=== PATIENT | male | born 1940 | race Two or more races ===

== ENCOUNTER 2017-05-08 08:47 | Outpatient (CLI) | payer OTHER ==
[~2017-05-08 08:47] MED LIST: AMOX1TAB12 PO; ASPIR-TRIN325 MG; FLONASE16 G1 NS; METFORMIN HCL500 MG; NEURIN; SYNTHROID75 MCG
== END 2017-05-08 09:33 | disposition home or self-care (01) ==
LOC: SONOGRAMA 08:47
DX: M19.072 Primary osteoarthritis, left ankle and foot (principal); M10.9 Gout, unspecified

== ENCOUNTER 2017-11-04 09:34 | Outpatient (CLI) | payer OTHER ==
[~2017-11-04] VITALS: Ht 152.4 cm; Wt 79.4 kg
[2017-11-04] MEDS ORDERED: DESLORATADINE5 MG PO (10:46)
[2017-11-04] MEDS ORDERED: FLONASE16 GM NASAL (10:46)
== END 2017-11-04 09:55 | disposition home or self-care (01) ==
LOC: OFIC 805 09:34
DX: J31.0 Chronic rhinitis (principal); H93.13 Tinnitus, bilateral; H90.3 Sensorineural hearing loss, bilateral

== ENCOUNTER 2017-11-24 07:25 | Outpatient (CLI) | payer OTHER ==
[~2017-11-24 07:25] MED LIST changes: +DESLORATADINE5 MG PO; +FLONASE16 GM NASAL
== END 2017-11-24 08:00 | disposition home or self-care (01) ==
LOC: NUCLEAR 07:25
DX: I20.8 Other forms of angina pectoris (principal)
CPT/HCPCS: 78452; 93017; A9500

== ENCOUNTER 2018-02-17 08:44 | Outpatient (CLI) | payer OTHER | END 2018-02-17 08:51 | disposition home or self-care (01) | LOC: TOM 08:44 | DX: R91.1 Solitary pulmonary nodule (principal) ==

== ENCOUNTER → 2018-05-05 | Outpatient (CLI) | payer OTHER | END | disposition home or self-care (01) | LOC: RAD 501 09:07 | DX: I11.9 Hypertensive heart disease without heart failure (principal); R06.02 Shortness of breath ==

== ENCOUNTER 2018-11-12 09:36 | Outpatient (CLI) | payer OTHER | END 2018-11-12 10:16 | disposition home or self-care (01) | LOC: SONOGRAMA 09:36 | DX: R80.8 Other proteinuria (principal); N19 Unspecified kidney failure ==

== ENCOUNTER 2019-02-09 07:37 | Outpatient (CLI) | payer OTHER ==
[~2019-02-09] VITALS: Ht 152.4 cm; Wt 77.1 kg
[2019-02-09] MEDS ORDERED: MEDROL4 MG PO (10:49)
[2019-02-09] MEDS ORDERED: DESLORATADINE5 MG PO (10:49)
[2019-02-09] MEDS ORDERED: FLONASE16 GM NASAL (10:49)
== END 2019-02-09 08:15 | disposition home or self-care (01) ==
LOC: OFIC 805 07:37
DX: J32.8 Other chronic sinusitis (principal); R49.0 Dysphonia; H93.13 Tinnitus, bilateral; R05 Cough; J31.0 Chronic rhinitis; H90.3 Sensorineural hearing loss, bilateral; J45.998 Other asthma

== ENCOUNTER → 2019-02-16 | Outpatient (CLI) | payer OTHER ==
[~2019-02-16] MED LIST changes: +MEDROL4 MG PO
== END | disposition home or self-care (01) ==
LOC: TOM 10:19
DX: J30.1 Allergic rhinitis due to pollen (principal); R91.1 Solitary pulmonary nodule

== ENCOUNTER 2019-11-22 12:42 | Outpatient (CLI) | payer OTHER ==
[2019-11-22] MEDS ORDERED: NEILMED SINUS1 EAC1 NASAL (12:54)
[2019-11-22] MEDS ORDERED: SINGULAIR10 MG PO (12:54)
[2019-11-22] MEDS ORDERED: DYMISTA NASAL S23 GM NASAL (12:54)
== END 2019-11-22 18:25 | disposition home or self-care (01) ==
LOC: OFIC 805 12:42
PROVIDERS: ATTEND Otolaryngology
DX: J30.89 Other allergic rhinitis (principal); J32.8 Other chronic sinusitis

== ENCOUNTER 2020-02-09 09:17 | Outpatient (CLI) | payer OTHER ==
[~2020-02-09 09:17] MED LIST changes: +DYMISTA NASAL S23 GM NASAL; +NEILMED SINUS1 EAC1 NASAL; +SINGULAIR10 MG PO
== END 2020-02-09 09:19 | disposition home or self-care (01) ==
LOC: TOM 09:17
PROVIDERS: ATTEND Internal Medicine Pulmonary Disease
DX: R91.1 Solitary pulmonary nodule (principal); J30.1 Allergic rhinitis due to pollen

== ENCOUNTER 2020-02-11 08:12 | Outpatient (CLI) | payer OTHER | END 2020-02-11 13:46 | disposition home or self-care (01) | LOC: OFIC 805 08:12 | PROVIDERS: ATTEND Otolaryngology | DX: R42 Dizziness and giddiness (principal); H61.23 Impacted cerumen, bilateral; J30.9 Allergic rhinitis, unspecified ==

== ENCOUNTER 2020-04-30 08:23 | Outpatient (CLI) | payer OTHER | END 2020-04-30 16:40 | disposition home or self-care (01) | LOC: SONOGRAMA 08:23 | PROVIDERS: ATTEND Specialist/Technologist, Other Nephrology | DX: N17.8 Other acute kidney failure (principal); N13.8 Other obstructive and reflux uropathy ==

== ENCOUNTER → 2021-06-19 08:11 | Outpatient (CLI) | payer OTHER | END | disposition home or self-care (01) | LOC: LAB 08:11 | PROVIDERS: ATTEND Radiology Diagnostic Radiology | DX: N20.0 Calculus of kidney (principal) ==

== ENCOUNTER 2021-06-20 07:16 | Outpatient (CLI) | payer OTHER | END 2021-06-20 07:25 | disposition home or self-care (01) | LOC: TOM 07:16 | PROVIDERS: ATTEND Internal Medicine Gastroenterology | DX: K59.00 Constipation, unspecified (principal); E03.9 Hypothyroidism, unspecified; R14.0 Abdominal distension (gaseous) ==

== ENCOUNTER 2021-09-09 09:30 | Outpatient (CLI) | payer OTHER | END 2021-09-09 09:40 | disposition home or self-care (01) | LOC: PPH VACUNA 09:30 | PROVIDERS: ATTEND Emergency Medicine Pediatric Emergency Medicine | DX: Z23 Encounter for immunization (principal) ==

== ENCOUNTER 2022-02-13 09:19 | Outpatient (CLI) | payer OTHER | END 2022-02-13 09:29 | disposition home or self-care (01) | LOC: PPH VACUNA 09:19 | PROVIDERS: ATTEND Emergency Medicine Pediatric Emergency Medicine | DX: Z23 Encounter for immunization (principal) ==

== ENCOUNTER 2022-02-13 09:20 | Outpatient (CLI) | payer OTHER | END 2022-02-13 09:30 | disposition home or self-care (01) | LOC: PPH VACUNA 09:20 | PROVIDERS: ATTEND Emergency Medicine Pediatric Emergency Medicine | DX: Z23 Encounter for immunization (principal) ==

== ENCOUNTER 2022-06-25 07:51 | Outpatient (CLI) | payer OTHER | END 2022-06-25 07:56 | disposition home or self-care (01) | LOC: SONOGRAMA 07:51 | PROVIDERS: ATTEND Internal Medicine Gastroenterology | DX: R10.9 Unspecified abdominal pain (principal) ==

== ENCOUNTER 2023-02-12 07:30 | Outpatient (CLI) | payer OTHER | END 2023-02-12 07:34 | disposition home or self-care (01) | LOC: SONOGRAMA 07:30 | PROVIDERS: ATTEND Specialist/Technologist, Other Nephrology | DX: R10.9 Unspecified abdominal pain (principal); N18.30 Chronic kidney disease, stage 3 unspecified; R31.9 Hematuria, unspecified ==

== ENCOUNTER 2023-11-23 08:23 | Emergency (ER) | payer OTHER ==
[~2023-11-23] VITALS: Ht 152.4 cm; Wt 77.1 kg
[2023-11-23] MEDS ORDERED: 0.9 % SODIUM CHLORIDE 1,000 ML IV SCH (09:00)
[2023-11-23] MEDS ORDERED: LOPERAMIDE HCL 2 MG CAPSULE PO ONE (09:15)
[2023-11-23] MEDS ORDERED: METRONIDAZOLE/SODIUM CHLORIDE 500 MG/100 ML PIGGYBACK IV ONE (09:15)
[2023-11-23 09:35] LABS: HEMATOCRIT 43.2 % (39.0-48.0); HEMOGLOBIN 14.9 g/dL (13-16.00); MEAN CELL VOLUME 90.8 fL (80.0-100.00); MEAN CORPUSCULAR HEMOGLOBIN 31.4 pg (27.00-32.0); MEAN CORPUSCULAR HGB CONC 34.6 g/dl (32.0-36.0); PLATELET COUNT 239 K/uL (150-450); RED BLOOD COUNT 4.76 M/uL (4.00-6.00); RED CELL DISTRIBUTION WIDTH 13.5 % (11.5-14.5)
[2023-11-23 09:49] LABS: CALCIUM 9.3 mg/dL (8.5-10.1); CREATININE SERUM 1.34 mg/dL (0.70-1.30); GFR 51.03; POTASSIUM 3.72 mEq/L (3.5-5.1)
[2023-11-23 10:30] LABS: URINE APPEARANCE Clear; URINE BACTERIA 15.1 uL (0.0-1933); URINE BILIRRUBIN Negative (NEGATIVE); URINE BLOOD Negative; URINE COLOR Yellow; URINE EPITHELIAL CELLS 3.2 uL (0.0-38.8); URINE GLUCOSE Negative (NEGATIVE); URINE KETONE Negative (NEGATIVE); URINE LEUKOCYTE Negative; URINE NITRATE Negative; URINE PROTEIN Negative (NEGATIVE); URINE RBC 4.5 uL (0.0-20.8); URINE UROBILINOGEN 0.2 E.U./dl; URINE WBC 2.7 uL (0.0-23.2)
[2023-11-23 10:34] LABS: URINE CAST 0.15 uL (0.0-1.40)
== END 2023-11-23 12:28 | disposition home or self-care (01) ==
LOC: ER 08:24
PROVIDERS: Emergency Medicine
DX: K52.89 Other specified noninfective gastroenteritis and colitis (principal); A05.9 Bacterial foodborne intoxication, unspecified; R11.10 Vomiting, unspecified; E07.89 Other specified disorders of thyroid
CPT/HCPCS: 36415; 96365; 96366; 99282; J3490; J7030

== ENCOUNTER 2024-12-27 07:36 | Outpatient (CLI) | payer OTHER | END 2024-12-27 07:43 | disposition home or self-care (01) | LOC: SONOGRAMA 07:36 | PROVIDERS: ATTEND Internal Medicine Gastroenterology | DX: R10.9 Unspecified abdominal pain (principal) ==